=== PATIENT | male | born 1995 | race Caucasian/White ===

== ENCOUNTER 2024-04-30 14:29 | Emergency (ER) | payer MEDICARE, MEDICAID, SELFPAY ==
[2024-04-30] VITALS (7 sets, daily range): BP systolic 132–154; BP diastolic 70–91; PULSE 82–92; RESP 16–20; TEMP 36.8; O2SAT 95–97; BMI 19.9
--- NOTE | 2024-04-30 14:33 | XRR_ITS ---
PROCEDURE INFORMATION: Exam: XR Chest Exam date and time: 04/30/2024 2:37 PM Age: 28 years old Clinical indication: Dyspnea and shortness of breath TECHNIQUE: Imaging protocol: Radiologic exam of the chest. Views: 1 view. COMPARISON: CR XR chest 1V [id number] 09/29/2018 11:04 PM FINDINGS: Lungs: Unremarkable. No consolidation. Pleural spaces: Unremarkable. No pleural effusion. No pneumothorax. Heart/Mediastinum: Unremarkable. No cardiomegaly. Bones/joints: Mild scoliosis with minimal spondylosis. Otherwise, unremarkable. XR/XR chest 1V portable [id number] IMPRESSION: No acute disease.
--- NOTE | 2024-04-30 14:39 | ED_ITS ---
HPI - SOB/Dyspnea General: Chief Complaint: Asthma Stated Complaint: SOB Time Seen by Provider: 04/30/24 14:31 Source: patient and EMS Mode of arrival: EMS Limitations: no limitations History of Present Illness: HPI Narrative: 28-year-old male states he has got a his tory of asthma he states last 2 days has been having increasing wheezing with cough and congestion. He states he does not have any albuterol at home states symptoms worsen this morning so he called EMS he did receive a breathing treatment route states he feels much improved. He states his cough but nonproductive denies any pain or fever. Associated symptoms: Deny abdominal pain, chest pain, fever(s), nausea or vomiting Related Data Previous Rx's Medication Instructions Recorded albuterol sulfate 90 mcg/actuation 2 inh inhalation Q6H PRN shortness 04/30/24 aerosol inhaler of breath or wheezing #8 grams Allergies Allergy/AdvReac Type Severity Reaction Status Date / Time cat dander Allergy ALGY-Swell Verified 04/30/24 14:42 Lip/Tongue/Throat Review of Systems Const: Denies: fever(s), chills, body aches or change in appetite ENMT: Denies: throat pain or dental pain Card: Denies: chest pain Resp: Reports: non-productive cough and wheezing; Denies: dyspnea GI: Denies: abdominal pain, nausea, vomiting or diarrhea Musc: Denies: neck pain or back pain Skin/Breast: Denies: rash Neuro: Denies: headache(s) Physical Exam Const: COMMON NORMALS: no acute distress, patient oriented x3 and healthy appearing HENMT: COMMON NORMALS: normocephalic and atraumatic HEAD & SCALP: normocephalic and atraumatic Neck/C-Spine: COMMON NORMALS: full ROM and supple Chest: COMMONS NORMALS: normal inspection of the chest Resp: COMMON NORMALS: normal respiratory effort AUSCULTATION: wheezes Cardio: COMMON NORMALS: regular rate, regular rhythm and No murmurs present (Cardio) RATE: regular rate RHYTHM: regular rhythm Extremity: COMMON NORMALS: normal to inspection and full ROM Neuro: COMMON NORMALS: patient oriented x3, moves all extremities and no focal motor deficits Psych: COMMON NORMALS: mental status grossly normal, Normal thought process present and cooperative THOUGHT PROCESS: Normal thought process present Skin: COMMON NORMALS: no rashes or lesions noted and no wounds GENERAL SKIN EXAM: no rashes or lesions noted Course Vital Signs: Vital signs: Vital Signs Temperature 98.3 F 04/30/24 14:30 Pulse Rate 86 04/30/24 15:18 Respiratory Rate 18 04/30/24 15:18 Blood Pressure 154/91 04/30/24 14:30 Pulse Oximetry 96 04/30/24 15:18 Oxygen Delivery Me thod Room Air 04/30/24 15:18 MDM - SOB/Dyspnea Medical Decision Making Patient presents here with asthma exacerbation he has no signs of pneumonia is much improved after breathing treatment did give him Decadron we will prescribe him an albuterol inhaler he is stable for discharge follow-up with PCP return if worsening. Medical Records I reviewed the patient's medical records. Lab Data I reviewed the patient's lab results. Labs/Radiology: Radiology Impressions Chest X-Ray 04/30/24 14:33 IMPRESSION: No acute disease. Laboratory Results Coronavirus (PCR) Negative (Negative) 04/30/24 15:18 Influenza A (PCR) Negative (Negative) 04/30/24 15:18 Influenza Type B (PCR) Negative (Negative) 04/30/24 15:18 RSV (PCR) Negative (Negative) 04/30/24 15:18 All radiology interpretation(s) finalized by discharge Discharge Plan Discharge Patient Disposition: Home Clinical Impression: Asthma with acute exacerbation Condition: Stable Prescriptions: New albuterol sulfate 90 mcg/actuation HFA aerosol inhaler 2 inh INHALATION Q6H PRN (Reason: shortness of breath or wheezing) Qty: 8 0RF Discharge Orders: Discharge ED (Routine); Ordered 04/30/24 Ordered By: Yessenia Colon Discharge Diet: Advance as tolerated Discharge Activity: Resume usual activity Patient Instructions: Asthma Exacerbation - Adult, Asthma (ED) Coding Level of Care Code ED Extension Service Specialist In Charge for Nicki Conway
[2024-04-30] MEDS: dexamethasone 10 mg/mL INJ IM (15:11)
[2024-04-30] MEDS: albuterol 8 gm MDI 2 PUFF INHALATION (15:18)
[2024-04-30 16:31] LABS: Covid PCR NEGATIVE (Negative); Influenza A NEGATIVE (Negative); Influenza B NEGATIVE (Negative); Respiratory Syncytial Virus Ce NEGATIVE (Negative)
== END 2024-04-30 16:55 | disposition home or self-care (01) ==
PROVIDERS: Emergency Provider Emergency Medicine
DX: J45.901 Unspecified asthma with (acute) exacerbation (principal); Z11.52 Encounter for screening for COVID-19
CPT/HCPCS: 0241U; 71045; 96372; 99284; J1100; J3535

== ENCOUNTER 2024-11-26 11:02 | Outpatient (CLI) | payer MEDICARE, MEDICAID, SELFPAY ==
--- NOTE | 2024-11-26 11:15 | XR_ITS ---
WS: [id number] Exam: XR abdomen 1V* [id number] Date/Time of Exam: 11/26/2024 11:32 AM Reason For Exam: LOWER ABDOMINAL PAIN No bowel obstruction or free air. No sign of organ enlargement. Unremarkable bony elements. Moderate amount retained stool in the transverse and RIGHT colon. XR/XR abdomen 1V* [id number] IMPRESSION: 1. No acute abdominal process.
== END 2024-11-26 11:03 | disposition home or self-care (01) ==
LOC: RAD 11:10
PROVIDERS: PCP Internal Medicine; Visit Provider Internal Medicine
DX: R10.30 Lower abdominal pain, unspecified (principal); R93.89 Abnormal findings on diagnostic imaging of other specified body structures
CPT/HCPCS: 74018

== ENCOUNTER 2025-02-07 15:30 | Inpatient (IN) | payer MEDICARE, MEDICAID, SELFPAY ==
--- OUTSIDE RECORDS SUMMARY | 2024-11-18 09:00 | XMS_ITS ---
Author Organization [facility] Address [address] [place] [address] Care Team Providers Care Mangle Feeder Name Role Phone Chang Jean Unavailable REASON FOR VISIT EST CARE Encounters Encounter Location Date Provider Diagnosis [facility] [address] [place] [phone] 11/18/2024 Chang Jean Plan Of Treatment No Information Progress Notes * CHANG REIDDOB: (29 yo M)Acc No.[id number]:11/18/2024 Progress Notes Patient: CHANG MCKEON Provider: Aleida Jean MD :1995 A ge:29 Y S ex:Male Date:11/18/2024 Address:[address] [place], [place] [phone] Subjective: * Chief Complaints: * 1 . EST CARE. * Medical History: Objective: * Vitals: Assessment: Plan: * Treatment: Forms: Care Plan: * Problems: * Billing Information: * Visit Code: * Procedure Codes: * Electronic signature of Gaby Jean MD on 02/07/2025 at 03:54 PM CDT Sign off status: Pending * Provider: Aleida Jean MD Date: 11/18/2024 Generated for Babita iraheta/Fameg/eTransmitting on: 0 02/07/2025 03:54 PM CDT
[2025-02-07 15:33] VITALS: BP 131/81; PULSE 117; RESP 16; TEMP 37.4; O2SAT 98
--- OUTSIDE RECORDS SUMMARY | 2025-02-07 15:54 | XMS_ITS | Encounter Summary ---
Author Organization [facility] Address [address] [place] [address] Care Team Providers Care Collar Stitcher Name Role Phone Erin Cruz MD Primary Care Provider Reason for Visit * Reason Comments Medication Refill Encounter Details Date Type Department Care Team (Late st Contact Info) Description 09/25/2019 Refill [facility] Orthopedics Orthopedic [facility] [address] [place] [phone] Byron Montilla MD [address] [place] [address] Social History Tobacco Use Types Packs/Day Years Used Date Smoking Tobacco: Never Assessed Sex and Gender Information Value Date Recorded Sex Assigned at Not on file 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 Gender Identity Not on file Sexual Orientation Not on file documented as of this encounter Plan of Treatment Not on file documented as of this encounter Visit Diagnoses Not on filedocumented in this encounter Additional Health Concerns Infection Onset Date Last Indicated Resolved Time R/O COVID-01/25/2021 01/25/2021 01/25/2021 5:30 PM CDT COVID-19 01/25/2021 01/25/2021 02/24/2021 8:08 PM CDT documented as of this encounter Care Teams Collar Stitcher Relationship Specialty Start Date End Date Erin Cruz MD [address] [facility] [place] [phone] PCP - General Family Practice 01/25/21 documented as of this encounter
--- OUTSIDE RECORDS SUMMARY | 2025-02-07 15:54 | XMS_ITS | Clinical Summary ---
Author Organization [facility] Address [address] [place] [address] Phone Care Team Providers Care Note Keeper Name Role Phone Erin Cruz MD Primary Care Provider Allergies No known active allergies Medications benzonatate (TESSALON) 100 mg capsule Take 1 Capsule (100 mg) by mouth 3 times daily. 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 Gender Identity Not on file Sexual Orientation Not on file Last Filed Vital Signs Vital Sign Reading Time Taken Comments Blood Pressure 147/88 01/25/2021 7:04 PM CDT Pulse 86 01/25/2021 7:04 PM CDT Temperature 36.7 C (98 F) 01/25/2021 7:04 PM CDT Respiratory Rate 16 01/25/2021 7:04 PM CDT Oxygen Saturation 100% 01/25/2021 7:04 PM CDT Inhaled Oxygen Concentration - - Weight - - Height - - Body Mass Index - - Plan of Treatment Health Maintenance Due Date Last Done Comments DTAP/TDAP/TD VACCINES (1 - Tdap) 2012 HEPATITIS B VACCINES (1 of 3 - 19+ 3-dose series) 2012 INFLUENZA VACCINE (#1) 2024 HPV VACCINES Aged Out No longer eligi ble based on patient's age to complete this topic Insurance [place]ICA[place] MEDICARE PART A AND B RX ulike Medicare Part D * Guarantor: [phone] Account Type Relation to Patient Date of Phone Billing Address Personal/Family Father MEDICAID [place] Care Teams Note Keeper Relationship Specialty Start Date End Date Erin Cruz MD [address] [place] [phone] PCP - General Family Practice 01/25/21
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
--- OUTSIDE RECORDS SUMMARY | 2025-02-07 15:54 | XMS_ITS | Clinical Summary ---
Author Organization [facility] Address [address] [place] [address] Phone Care Team Providers Care Transfer Machine Operator Name Role Phone Erin Cruz MD Primary Care Provider [phone] Medications benzonatate (TESSALON) 100 mg capsule Take 1 Capsule (100 mg) by mouth 3 times daily. 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 Gender Identity Not on file Sexual Orientation Not on file Last Filed Vital Signs Vital Sign Reading Time Taken Comments Blood Pressure 147/88 01/25/2021 7:04 PM CDT Pulse 86 01/25/2021 7:04 PM CDT Temperature 36.7 C (98 F) 01/25/2021 7:04 PM CDT Respiratory Rate 16 01/25/2021 7:04 PM CDT Oxygen Saturation - - Inhaled Oxygen Concentration - - Weight - - Height - - Body Mass Index - - Plan of Treatment Health Maintenance Due Date Last Done Comments DTAP/TDAP/TD VACCINES (1 - Tdap) 2012 HEPATITIS B VACCINES (1 of 3 - 19+ 3-dose series) 2012 INFLUENZA VACCINE (#1) 2025 HPV VACCINES Aged Out No longer eligi ble based on patient's age to complete this topic Insurance * Guarantor: CHANG REID Account Type Relation to Patient Date of Phone Billing Address Personal/Family [address] [place] [address] [employer] Medicare Part D Care Teams Transfer Machine Operator Relationship Specialty Start Date End Date Erin Cruz MD [address] [place] [phone] PCP - General 01/25/21
--- OUTSIDE RECORDS SUMMARY | 2025-02-07 15:54 | XMS_ITS | Patient Health Record ---
Author Organization [facility] Address [address] [place] [address] Care Team Providers Care Sessions Clerk Name Role Phone JeanChang langford Unavailable Allergies No Known Allergies Results Component Value Reference Range Notes Abdomen [id number] Reviewed date:11/26/2024 04:33:13 PM Interpretation: Performing Lab: Notes/Report: Reason For Referral No Information Medications Medication SIG (Take, Route, Fr equency, Duration) Notes Start Date End Date Status Lumigan 0.01 % 1 drop into affected eye in the evening Ophthalmic Once a day Ac tive tiZANidine HCl 4 mg TAKE ONE TABLET BY M OUTH NEEDED ONCE A DAY AT BEDTIME for 30 Active Meloxicam 15 mg TAKE ONE TABLET BY M OUTH ONCE A DAY FOR 30 DAYS for 30 Active Social History Tobacco Use: Social History Observation Description Date Details (start date - stop date) Former Smoker NA - NA PHQ-9 Question Answer Notes Little interest or pleasure in doing things Not at all Feeling down, depressed, or hopeless Not at all Trouble falling or staying asleep, or sleeping t oo much Not at all Feeling tired or having little energy Not at all Poor appetite or overeating Not at all Feeling bad about yourself, or that you are a failure, or have let yourself or your family down Not at all Trouble concentrating on thi ngs, such as reading the newspaper or watching television Not at all Moving or speaking so slowly that other people could have noticed. Or the opposite ? being so fidgety or restless that you have been moving around a lot more than usual Not at all Thoughts that you would be b nicolas off , or of hurting yourself in some way Not at all Total Score 0 Tobacco Control (Standard) Question Answer Notes Tobacco use: Former smoker How long has it been since you last smoked? 1-5 years Section Notes: CIME Dep/tob - 11/21/24 CIME Dep/tob - 11/21/24 Problems Problem Type SNOMED Code ICD Code Onset Dates Problem Status W/U Status Risk Notes Problem 73361956 Neck pain (M54.2) Active confirmed Problem 09253718 Lower abdominal pain (R10.30) Active confirmed Vital Signs Heart Rate 75 /min 11/27/2024 Temperature 98.8 degrees Fahrenheit 11/27/2024 Blood pressure diastolic 68 mm Hg 11/27/2024 Oximetry 99 % 11/27/2024 Height-cm 187.96 cm 11/27/2024 Weight-kg 77.84 kg 11/27/2024 Height 74 in 11/27/2024 Blood pressure systolic 120 mm Hg 11/27/2024 Weight 171.6 lbs 11/27/2024 BMI 22.03 kg/m2 11/27/2024 Encounters Encounter Location Date Provider Diagnosis [facility] [address] [place] [phone] 01/28/2025 Chang [facility] [address] [place] [phone] 11/27/2024 Chang Jean Neck pain M54.2 and Depression screen Z13.31 [facility] [address] [place] [phone] 11/21/2024 Chang Jean Lower abdominal pain R10.30 ; Neck pain M54.2 and Depression screen Z13.31 Assessments Encounter Date Diagnosis (ICD Code) Assessment Notes Treatment Notes Treatment Clinical Notes Section Notes 11/21/2024 Neck pain (ICD-10 - M54.2) 11/21/2024 Lower abdominal pain (ICD-10 - R10.30) 11/27/2024 Neck pain (ICD-10 - M54.2) I have encouraged him to take the zanaflex and meloxicam. 11/27/2024 Depression screen (ICD-10 - Z13.31) 11/21/2024 Depression screen (ICD-10 - Z13.31) Plan Of Treatment No Information Insurance Providers Payer Name Payer Address Payer Phone Subscriber Number Group Number Insured Name Patient Relationship to Insured Coverage Start Date Coverage End Date [employer] with DME [address] [address] [place] [address] [id number] CHANG REID Self - patient is the insured [place] Medicare [address] [address] [place] [address] [id number] CHANG REID Self - patient is the insured [place] Medicaid [address] [place] [address] [id number] CHANG REID Self - patient is the insured Medical (General) History Medical History History ICD Code glaucoma hernia neck pain Surgical History Surgery Date(Month/Year) hernia repair
--- NOTE | 2025-02-07 16:02 | W.ED.PSYCHS ---
HPI - Psych General: Chief Complaint: Psychiatric Symptoms Stated Complaint: 96 Time Seen by Provider: 02/07/25 15:32 History of Present Illness: This patient is a 29 year old presenting with police on a [address] There are affidavits from his family regarding some violent behavior and statements about suicide. The patient denies that. He does admit he was throwing things out of his trailer because he was looking for a magnet and because he needs to get all the black mold out of the trailer. He demonstrates pressured speech and is difficult to keep on topic. Related Data Home Medications ?Medication ?Instructions ?Recorded ?Confirmed bimatoprost 0.01 % eye drops 1 drp ophthalmic (eye) BEDTIME 02/07/25 02/07/25 (Lumigan) meloxicam 15 mg tablet 15 mg PO DAILY 02/07/25 02/07/25 tizanidine 4 mg tablet 4 mg PO BEDTIME 02/07/25 02/07/25 Allergies Allergy/AdvReac Type Severity Reaction Status Date / Time cat dander Allergy ALGY-Swell Verified 04/30/24 14:42 Lip/Tongue/Throat [facility] ED PFSH: Medical History (Updated 02/07/25 @ 17:38 by Dannielle Anderson MD) Asthma Glaucoma Marijuana dependence Surgical History (Updated 05/02/24 @ 13:53 by Bharti Jeffery MD) History of right inguinal hernia repair Family History (Updated 05/02/24 @ 13:17 by Jacqueline Navarro LPN) Father Hypertension Mother Arthritis Social History (Updated 05/02/24 @ 13:26 by Jacqueline Navarro LPN) Smoking and tobacco/nicotine status: former use of tobacco/nicotine Alcohol intake: current Alcohol intake frequency: 3 or more drinks per day Alcohol type: beer and hard liquor Substance/Drug Use: current Substance/Drug use frequency: daily Adopted: No Caregiver/support person: No Lives independently: Yes Household members: none Housing: Manufactured/Mobile home Marital status: Single Number of children: 0 Highest education level completed: High School Graduate Current occupational status: disabled Current occupational exposures/hazards: No Pets and animals: Yes Sexually active: Yes Do you think of yourself as: Straight/Heterosexual Current gender identity: Male Physical Exam Const: COMMON NORMALS: no acute distress, patient oriented x3, no limitations and alert GENERAL APPEARANCE: cooperative and comfortable HENMT: HEAD & SCALP: normal to inspection FACE & SINUS: normal facial exam Eye: GENERAL EYE: appearance normal, both eyes and all related structures Neck/C-Spine: COMMON NORMALS: supple, no meningeal signs and no JVD Chest: COMMONS NORMALS: normal inspection of the chest Resp: COMMON NORMALS: normal respiratory effort, No use of accessory muscles and clear to auscultation bilaterally AUSCULTATION: clear to auscultation bilaterally Cardio: COMMON NORMALS: no JVD, regular rate, regular rhythm and No murmurs present (Cardio) RATE: regular rate RHYTHM: regular rhythm GI: COMMON NORMALS: Normal to inspection, nondistended, normoactive bowel sounds present, Soft to palpation and non-tender INSPECTION: Yes normal to inspection AUSCULTATION: Yes normoactive bowel sounds PALPATION: Yes Soft to palpation Back/Pelvis: COMMON NORMALS: thoracic and lumbar spine normal to inspection Extremity: COMMON NORMALS: normal to inspection Neuro: COMMON NORMALS: patient oriented x3, moves all extremities, no focal motor deficits and no sensory deficits noted SENSORIUM/ORIENTATION: Yes alert MENINGEAL SIGNS: Yes no meningeal signs Psych: ACTIVITY/MOTOR BEHAVIOR: Yes fidgeting and Yes restless SPEECH: Yes excessive, Yes rapid and Yes Pressured speech present THOUGHT CONTENT: Yes Obsession(s) present INSIGHT: Poor insight present (Psych) Skin: COMMON NORMALS: no rashes or lesions noted and turgor normal GENERAL SKIN EXAM: no rashes or lesions noted and turgor normal Course Vital Signs: Vital signs: Vital Signs Temperature 99.4 F 02/07/25 15:33 Pulse Rate 117 H 02/07/25 15:33 Respiratory Rate 18 02/07/25 16:38 Blood Pressure 131/81 02/07/25 15:33 Pulse Oximetry 98 02/07/25 15:33 Oxygen Delivery Me thod Room Air 02/07/25 15:33 MDM - Psych Medical Decision Making Patient is agitated and pressured - manic. He denies any history of prior psychiatric disorders or treatment and denies any drug use other than cannabis. 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 He is cooperative but becomes easily irritated. Lab Data 02/07/25 15:50 02/07/25 15:50 Laboratory Results WBC 8.83 10^3/uL (3.29-11.43) 02/07/25 15:50 RBC 5.73 10^6/uL (3.85-5.65) H 02/07/25 15:50 Hgb 15.80 g/dL (11.27-16.99) 02/07/25 15:50 Hct 47.1 % (37-53) 02/07/25 15:50 MCV 82.2 fl (82-101) 02/07/25 15:50 MCH 27.6 pg (27-33) 02/07/25 15:50 MCHC 33.5 g/dL (30-55) 02/07/25 15:50 RDW 12.5 % (12.1-15.1) 02/07/25 15:50 Plt Count 230 10^3/cmm (157-399) 02/07/25 15:50 MPV 11.1 fL (7.4-10.4) H 02/07/25 15:50 Neut % (Auto) 67.2 % 02/07/25 15:50 Lymph % (Auto) 22.9 % 02/07/25 15:50 Assumption % (Auto) 8.4 % 02/07/25 15:50 Eos % (Auto) 0.8 % 02/07/25 15:50 Baso % (Auto) 0.6 % 02/07/25 15:50 Neut # (Auto) 5.94 10^3/uL (1.8-7.7) 02/07/25 15:50 Lymph # (Auto) 2.0 10^3/uL (0.8-4.8) 02/07/25 15:50 Assumption # (Auto) 0.7 10^3/uL (0.2-0.9) 02/07/25 15:50 Eos # (Auto) 0.1 10^3/uL (0.0-0.8) 02/07/25 15:50 Baso # (Auto) 0.1 10^3/uL (0.0-0.1) 02/07/25 15:50 Nucleated RBC % (auto) 0 % 02/07/25 15:50 Nucleated RBCs # 0.0 /100WBC 02/07/25 15:50 Sodium 143 mmol/L (136-145) 02/07/25 15:50 Potassium 3.5 mmol/L (3.5-5.1) 02/07/25 15:50 Chloride 106 mmol/L (98-107) 02/07/25 15:50 Carbon Dioxide 22 mmol/L (22-29) 02/07/25 15:50 Anion Gap 18.5 (5-19) 02/07/25 15:50 BUN 12 mg/dL (6-20) 02/07/25 15:50 Creatinine 0.6 mg/dL (0.7-1.2) L 02/07/25 15:50 GFR Calculation 157.1 mL/min (90-130) H 02/07/25 15:50 Glucose 125 mg/dL (65-115) H 02/07/25 15:50 Calculated Osmolality 297 mOsm/kg (285-295) H 02/07/25 15:50 Calcium 9.6 mg/dL (8.5-10.5) 02/07/25 15:50 Total Bilirubin 2.2 mg/dL (0.15-1.2) H 02/07/25 15:50 AST 17 U/L (0-40) 02/07/25 15:50 ALT 17 U/L (0-41) 02/07/25 15:50 Alkaline Phosphatase 62 U/L (40-130) 02/07/25 15:50 Total Protein 7.9 g/dL (6.6-8.7) 02/07/25 15:50 Albumin 5.1 g/dL (3.5-5.2) 02/07/25 15:50 Globulin 2.8 g/dL (1.3-4.6) 02/07/25 15:50 Salicylates < 0.3 mg/dL (3-10) L 02/07/25 15:50 Urine Opiates Screen Negative ng/mL (Negative) 02/07/25 16:50 Acetaminophen < 5.0 ug/mL (10-30) L 02/07/25 15:50 Ur Barbiturates Screen Negative ng/mL (Negative) 02/07/25 16:50 Ur Phencyclidine Scrn Negative ng/mL (Negative) 02/07/25 16:50 Ur Amphetamines Screen Negative ng/mL (Negative) 02/07/25 16:50 U Benzodiazepines Scrn Negative ng/mL (Negative) 02/07/25 16:50 Urine Cocaine Screen Negative ng/mL (Negative) 02/07/25 16:50 U Marijuana (THC) Screen Positive ng/mL (Negative) H 02/07/25 16:50 Ethyl Alcohol < 10 mg/dL (0-10) 02/07/25 15:50 No radiology studies performed this visit Discharge Plan Discharge Patient Disposition: Admitted As Inpatient Admit Provider: Chris Nascimento Clinical Impression: Suicidal ideations, Krystle Condition: Stable Coding Level of Care Code ED Jacquard Card Cutter for Nicki Conway
[2025-02-07 16:05] LABS: Hematocrit 47.1 % (37-53); Hemoglobin 15.80 g/dL (11.27-16.99); Mean Corpuscular HGB Conc 33.5 g/dL (30-55); Mean Corpuscular Hemoglobin 27.6 pg (27-33); Mean Corpuscular Volume 82.2 fl (82-101); Nucleated Red Blood Cells % 0 %; Platelet Count 230 10^3/cmm (157-399); Red Blood Count 5.73 10^6/uL (3.85-5.65); White Blood Count 8.83 10^3/uL (3.29-11.43)
[2025-02-07 16:28] LABS: Alanine Aminotransferase 17 U/L (0-41); Albumin Level 5.1 g/dL (3.5-5.2); Alkaline Phosphatase 62 U/L (40-130); Anion Gap 18.5 (5-19); Aspartate Amino Transferase 17 U/L (0-40); Blood Urea Nitrogen 12 mg/dL (6-20); Calcium 9.6 mg/dL (8.5-10.5); Carbon Dioxide 22 mmol/L (22-29); Chloride 106 mmol/L (98-107); Creatinine Clr Calc Pharmacy 195.8569; Globulin 2.8 g/dL (1.3-4.6); Glucose 125 mg/dL (65-115); Osmolality Calculated 297 mOsm/kg (285-295); Potassium 3.5 mmol/L (3.5-5.1); Sodium 143 mmol/L (136-145); Total Protein 7.9 g/dL (6.6-8.7)
[2025-02-07 16:31] LABS: Acetaminophen < 5.0 ug/mL (10-30); Alcohol Level < 10 mg/dL (0-10); Salicylate < 0.3 mg/dL (3-10)
[2025-02-07 16:38] VITALS: RESP 18
--- NOTE | 2025-02-07 16:52 | PC.NURSE ---
provided pt with x1 spoon, pudding, jello, sandwich, water.
[2025-02-07 17:11] LABS: PCP Screen Urine Negative (Negative)
--- NOTE | 2025-02-07 17:53 | PC.NURSE ---
attempted report to [facility] x1; states will call back
--- NOTE | 2025-02-07 18:38 | PC.NURSE ---
report called to Griselda in [facility], no further questions.
[2025-02-07 19:17] VITALS: BP 140/89; PULSE 96; RESP 18; O2SAT 100
[2025-02-07 19:49] VITALS: BP 164/104; PULSE 87; RESP 21; O2SAT 98
[2025-02-07 20:32] VITALS: BP 164/104; PULSE 87; RESP 21; O2SAT 98
[2025-02-08 06:00] VITALS: BP 147/81; PULSE 82; RESP 18; TEMP 36.8; O2SAT 98
[2025-02-08 14:00] VITALS: BP 124/79; PULSE 59; RESP 18; TEMP 36.7; O2SAT 98
--- NOTE | 2025-02-08 17:24 | P.NPUHP_ITS ---
Providers/Chief Complaint 2 Admitting Physician: Chris Nascimento MD Primary Care Provider: Ac Jean MD Chief Complaint: 96 HPI NPU History of Present Illness Chang Colvin is a 29 year old male with a past history of bipolar disorder, oppositional defiant disorder and ADHD who presented to the emergency department accompanied by police on a 96-hour court order. The patient was admitted to the neuropsychiatric unit for further evaluation and treatment. The affidavits reveal that the patient had been engaged in unusual behavior on the trailer on his parents property yesterday. He had apparently thrown garbage out of his trailer and onto the ground as he had reported that he was protesting his father continuously yelling at him. He reports that he had hit himself in the head yesterday in frustration as he believes his father for having been here in the hospital. He had been a poor historian and was unable to provide any clear history other than reporting that he has been upset at having to live back with his parents on their property. He states that his father is to blame for him being here in the hospital. He reports that his father is the one that is angry and states that his mother walks on eggshells and that he is the victim. 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 He reports that he has been losing weight because he cannot afford food. The patient had stated that he was trying to remove black mold in his trailer and had admitted to having put a hole in his wall but stated that the hole in the wall of his trailer was because he was trying to repair it but wanted to remove the black mold first. He was extremely difficult to redirect on the interview and effectively did not answer any questions regarding his sleep pattern other than stating that he felt fine and did not need to be on any medications but simply needed to go home. He had denied any drug or alcohol use. The patient was positive for marijuana on admission. Inpatient psychiatric history: The patient had reported that he had been hospitalized as a kid but could not recall when. Outpatient psychiatric history: The patient had reported having been treated through [facility] as an adolescent and a child with history of oppositional defiant disorder, ADHD, and bipolar disorder. Substance abuse history: Patient minimized use although there was a prior history of presence of alcohol on another emergency department visit as well as the patient being positive for marijuana on this admission. Medical history: Optic nerve atrophy, glaucoma, asthma Surgical history: Right inguinal hernia repair Medications: Lumigan, meloxicam, tizanidine Allergies: cat dander Legal history: none reported Family psychiatric history: unknown Social History: The patient was born in [place] and has a brother that lives in [place]. He reports that he had required special's educational services due to his visual impairment but graduated from high school. He reports he has been on disability throughout his life. He did not endorse any history of abuse. He is currently living on a trailer on his parents property. He had previously lived in [place] independently for 5 years but stated that his ability to manage his care with his finances led to him having to move back home with his parents approximately 1 year ago. He reports having a contentious relationship with his parents. He is not . Meds NPU Home Medications ?Medication ?Instructions ?Recorded ?Confirmed ?Last Taken ?Type bimatoprost 0.01 % eye drops 1 drp ophthalmic (eye) BE DTIME 02/07/25 02/07/25 02/07/25 History (Lumigan) meloxicam 15 mg tablet 15 mg PO DAILY 02/07/25 0711/2902/06/25 19:00 History tizanidine 4 mg tablet 4 mg PO BEDTIME 02/07/2511/2902/06/25 19:00 History Allergies Allergy/AdvReac Type Severity Reaction Status Date / Time cat dander Allergy ALGY-Swell Verified 04/30/24 14:42 Lip/Tongue/Throat PFSH NPU 2 PFSH: Medical History (Updated 02/08/25 @ 18:03 by Chris Nascimento MD) Asthma Glaucoma Marijuana dependence Surgical History (Updated 05/02/24 @ 13:53 by Bharti Jeffery MD) History of right inguinal hernia repair Family History (Updated 05/02/24 @ 13:17 by Jacqueline Navarro LPN) Father Hypertension Mother Arthritis Social History (Updated 05/02/24 @ 13:26 by Jacqueline Navarro LPN) Smoking and tobacco/nicotine status: former use of tobacco/nicotine Alcohol intake: current Alcohol intake frequency: 3 or more drinks per day Alcohol type: beer and hard liquor Substance/Drug Use: current Substance/Drug use frequency: daily Adopted: No Caregiver/support person: No Lives independently: Yes Household members: none Housing: Manufactured/Mobile home Marital status: Single Number of children: 0 Highest education level completed: High School Graduate Current occupational status: disabled Current occupational exposures/hazards: No Pets and animals: Yes Sexually active: Yes Do you think of yourself as: Straight/Heterosexual Current gender identity: Male Mental Status Exam 2 MSE Comments: The patient was intense and somewhat guarded on interview. He was alert and oriented to person, place, and time. There was evidence of psychomotor agitation. His hygiene was fair. There was no evidence of any abnormal involuntary motor movements, tics, or tremors. His speech appeared rapid and difficult to interrupt with evidence of pressured speech and increasing volume noted. His thought process was tangential with difficulties with staying on task. He continued to perseverate throughout his conversation about his father and appeared overly inclusive in regards to providing information that appeared unrelated to the questions asked. There was some evidence of flight of ideas. He did not endorse homicidal or suicidal ideation. There was no clear evidence of delusional thinking. His attention span was impaired. His insight is poor. His judgment is poor. His impulse control appeared limited. Vitals/I&O/Wt Last Vital Signs Temp 98.1 F 02/08/25 14:00 Pulse 59 L 02/08/25 14:00 Resp 18 02/08/25 14:00 BP 124/79 02/08/25 14:00 Pulse Ox 98 02/08/25 14:00 O2 Del Method Room Air 02/08/25 06:00 Weight last 48 hrs Weight 70.76 kg Data NPU 02/07/25 15:50 02/07/25 15:50 A&P Assessment and plan (1) Mariann: (2) Bipolar I disorder: (3) Marijuana dependence: Plan 29-year-old male who presents with evidence of manic symptoms with no history of recent treatment with the patient having no insight currently on a hold for disruptive behavior and bizarre behavior reported at home. #1.? Engage patient in individual milieu and group therapy. #2?? Recommend sober living treatment at the highest level of care to which the patient is willing to commit. THC may be inducing mariann? #3??? Patient refusing any medications. Will monitor patient in context of 96 hour hold. #4?? TO-15 minute checks? #5?? Will attempt to gather collateral information PDMP PDMP Reviewed: Not Reviewed Involuntary Hold Information 2 Hold Status: Legal Status: 96 Hour Hold Date/Time Hold Expires: 02/14/25 @0001 Attestations NPU 2 Medical Necessity Statement*: Inpatient hospitalization is medically necessary and deemed to ?be ?the clinically appropriate intervention ?at this time.? We will monitor/initiate medications and make changes as indicated.? The patient will be hospitalized for at least two midnights. The patient?s likely length of stay 7-10 days. Coding Level of Care Code Acute Code for Chg Fwd Diagnoses Mariann F30.9 Bipolar I disorder F31.9 Marijuana dependence F12.20
[2025-02-08 19:20] VITALS: BP 124/74; PULSE 93; RESP 18; TEMP 36.9; O2SAT 96
--- NOTE | 2025-02-08 20:53 | PC.NURSE ---
Patient presented to the nurses station with request that i inform the physician that he would like to take the medications that the wants to prescribe to him. He is rating his anxiety 6/10. He is verbalizing that he has a lot on his mind with his dog needing to go to the vet and other issues related to his father. Hydroxizine 50 mg po given for this.
[2025-02-09 06:00] VITALS: BP 119/75; PULSE 69; RESP 18; TEMP 36.6; O2SAT 99
[2025-02-09 14:00] VITALS: BP 130/81; PULSE 70; RESP 18; TEMP 36.7; O2SAT 100
--- NOTE | 2025-02-09 16:16 | P.NPUPN_ITS ---
Subjective NPU 2 Subjective: The patient is a 29-year-old male admitted with disorganized behavior and manic symptoms with a history of bipolar disorder. Patient had been much calmer and cooperative on the milieu. He had reported sleeping better. He denied any racing thoughts today. He had reported that he was hopeful about finding a place to live independently as he had reported significant stressors in his family's home. He continued to state that his father had caused undue stress for him and had been excessively accusatory of him while tending to cause more instability in the patient. Mental Status Exam 2 MSE Comments: The patient was calm and cooperative on interview. He was alert and oriented to person, place, and time. There was no evidence of psychomotor agitation or psychomotor retardation today. His hygiene was fair. There was no evidence of any abnormal involuntary motor movements, tics, or tremors. His speech was normal in rate today and volume with normal prosody.. His thought process was linear and logical today. Thought content: He denied any homicidal or suicidal ideation. There was no evidence of delusional thinking. He did not appear to be responding to internal stimuli. His mood was described as good. His affect was euthymic today. His insight was poor. His judgment was improving. His impulse control appeared adequate. Vitals/I&O/Wt Last Vital Signs Temp 98.0 F 02/09/25 14:00 Pulse 70 02/09/25 14:00 Resp 18 02/09/25 14:00 BP 130/81 02/09/25 14:00 Pulse Ox 100 02/09/25 14:00 O2 Del Method Room Air 02/09/25 06:00 Weight last 48 hrs Weight 70.76 kg Data NPU 02/07/25 15:50 02/07/25 15:50 A&P Assessment and plan (1) Krystle: (2) Bipolar I disorder: (3) Marijuana dependence: Plan 29-year-old male who presents with evidence of manic symptoms with no history of recent treatment with the patient having no insight currently on a hold for disruptive behavior and bizarre behavior reported at home. #1.? Engage patient in individual milieu and group therapy. #2?? Patient appears much improved with the initiation of zyprexa 5mg at night. Curious as to whether THC was culprit in inducing krystle with very rapid improvement noted here. #3??? Patient refusing any medications. Will monitor patient in context of 96 hour hold. #4?? TO-15 minute checks? #5?? Will attempt to gather collateral information PDMP PDMP Reviewed: Not Reviewed Involuntary Hold Information 2 Hold Status: Legal Status: 96 Hour Hold Date/Time Hold Expires: 02/14/25 @0001 Attestations NPU 2 Medical Necessity Statement*: Inpatient hospitalization is medically necessary and deemed to ?be ?the clinically appropriate intervention ?at this time.? We will monitor/initiate medications and make changes as indicated. The patient?s likely length of stay 2-3 days. Coding Level of Care Code Acute Code for Chg Fwd Diagnoses Krystle F30.9 Bipolar I disorder F31.9 Marijuana dependence F12.20
[2025-02-09 19:55] VITALS: BP 127/75; PULSE 86; RESP 18; TEMP 36.4; O2SAT 96
[2025-02-09 20:50] VITALS: PULSE 57; RESP 18; O2SAT 98
[2025-02-10 06:00] VITALS: BP 134/80; PULSE 70; RESP 16; TEMP 36.4; O2SAT 99
[2025-02-10 09:25] VITALS: PULSE 73; RESP 18; O2SAT 97
[2025-02-10 14:00] VITALS: BP 138/73; PULSE 78; RESP 18; TEMP 36.9; O2SAT 100
--- NOTE | 2025-02-10 17:50 | P.NPUPN_ITS ---
Subjective NPU 2 Subjective: The patient is a 29-year-old male admitted with disorganized behavior and manic symptoms with a history of bipolar disorder. The patient had been sleeping well. He had reported that he was feeling better. He continued to perseverate about his problems at home with his father. He remained agreeable to consideration of being placed in an independent living facility. He had been redirectable on the milieu. There was no acts of aggression. He denied any racing thoughts at this time. He had reported having adequate sleep. Mental Status Exam 2 MSE Comments: The patient was calm and cooperative on interview. He was alert and oriented to person, place, and time. There was mild psychomotor activation. His hygiene was fair. There was no evidence of any abnormal involuntary motor movements, tics, or tremors. His speech was slightly increase in pressure today and normal in volume with normal prosody. His thought process was linear but some perseveration regarding his father being the source of his problems. Thought content: He denied any homicidal or suicidal ideation. There was no evidence of delusional thinking. He did not appear to be responding to internal stimuli. His mood was described as good. His affect was more irritable today. His insight was poor. His judgment was improving. His impulse control appeared guarded still. Vitals/I&O/Wt Last Vital Signs Temp 98.5 F 02/10/25 14:00 Pulse 78 02/10/25 14:00 Resp 18 02/10/25 14:00 BP 138/73 02/10/25 14:00 Pulse Ox 100 02/10/25 14:00 O2 Del Method Room Air 02/10/25 09:25 Weight last 48 hrs Weight 70.76 kg Data NPU 02/07/25 15:50 02/07/25 15:50 A&P Assessment and plan (1) Krystle: (2) Bipolar I disorder: (3) Marijuana dependence: Plan 29-year-old male who presents with evidence of manic symptoms with no history of recent treatment with the patient having no insight currently on a hold for disruptive behavior and bizarre behavior reported at home. #1.? Engage patient in individual milieu and group therapy. #2?? Patient appears much improved with the initiation of zyprexa 5mg at night. Increase zyprexa to 7.5mg at night. #3??? Patient refusing any medications. Will monitor patient in context of 96 hour hold. #4?? TO-15 minute checks? #5?? Will attempt to gather collateral information PDMP PDMP Reviewed: Not Reviewed Involuntary Hold Information 2 Hold Status: Legal Status: 96 Hour Hold Date/Time Hold Expires: 02/14/2025 0001 Attestations NPU 2 Medical Necessity Statement*: Inpatient hospitalization is medically necessary and deemed to ?be ?the clinically appropriate intervention ?at this time.? We will monitor/initiate medications and make changes as indicated. The patient?s likely length of stay 2-3 days. Coding Level of Care Code Acute Code for g Fwd Diagnoses Krystle F30.9 Bipolar I disorder F31.9 Marijuana dependence F12.20
[2025-02-10 20:25] VITALS: BP 142/89; PULSE 77; RESP 16; TEMP 36.9; O2SAT 98
[2025-02-11 06:00] VITALS: BP 146/90; PULSE 78; RESP 18; TEMP 36.3; O2SAT 95
--- NOTE | 2025-02-11 12:05 | DCPLANNER ---
Imm was given and right explained to pt and copy placed in pts file.
--- NOTE | 2025-02-11 13:10 | P.NPUDS_ITS ---
Diagnoses at Discharge Discharge Diagnosis 1. Krystle: 2. Bipolar I disorder: 3. Marijuana dependence: Reason for Visit Reason for Visit: 96 Brief History: History of Present Illness Chang Colvin is a 29 year old male with a past history of bipolar disorder, oppositional defiant disorder and ADHD who presented to the emergency department accompanied by police on a 96-hour court order. The patient was admitted to the neuropsychiatric unit for further evaluation and treatment. The affidavits reveal that the patient had been engaged in unusual behavior on the trailer on his parents property yesterday. He had apparently thrown garbage out of his trailer and onto the ground as he had reported that he was protesting his father continuously yelling at him. He reports that he had hit himself in the head yesterday in frustration as he believes his father for having been here in the hospital. He had been a poor historian and was unable to provide any clear history other than reporting that he has been upset at having to live back with his parents on their property. He states that his father is to blame for him being here in the hospital. He reports that his father is the one that is angry and states that his mother walks on eggshells and that he is the victim. 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 He reports that he has been losing weight because he cannot afford food. The patient had stated that he was trying to remove black mold in his trailer and had admitted to having put a hole in his wall but stated that the hole in the wall of his trailer was because he was trying to repair it but wanted to remove the black mold first. He was extremely difficult to redirect on the interview and effectively did not answer any questions regarding his sleep pattern other than stating that he felt fine and did not need to be on any medications but simply needed to go home. He had denied any drug or alcohol use. The patient was positive for marijuana on admission. Inpatient psychiatric history: The patient had reported that he had been hospitalized as a kid but could not recall when. Outpatient psychiatric history: The patient had reported having been treated through [facility] as an adolescent and a child with history of oppositional defiant disorder, ADHD, and bipolar disorder. Substance abuse history: Patient minimized use although there was a prior history of presence of alcohol on another emergency department visit as well as the patient being positive for marijuana on this admission. Medical history: Optic nerve atrophy, glaucoma, asthma Surgical history: Right inguinal hernia repair Medications: Lumigan, meloxicam, tizanidine Allergies: cat dander Legal history: none reported Family psychiatric history: unknown Social History: The patient was born in [place] and has a brother that lives in [place]. He reports that he had required special's educational services due to his visual impairment but graduated from high school. He reports he has been on disability throughout his life. He did not endorse any history of abuse. He is currently living on a trailer on his parents property. He had previously lived in [place] independently for 5 years but stated that his ability to manage his care with his finances led to him having to move back home with his parents approximately 1 year ago. He reports having a contentious relationship with his parents. He is not . Hospital Course Hospital Course The patient appeared quite manic initially upon arrival here in the hospital. He showed evidence of dramatic improvement with restarting of Zyprexa initially at 5 mg at night and titrated up to a dose of 7-1/2 mg at night prior to discharge. He had reported significant friction between his father and the patient but the patient had appeared agreeable to a long-term plan to live independently but in the short term returning back to his trailer on his father's property. During the hospitalization, the patient had routine laboratory studies which were within normal limits except for a few outliers.? Additionally, there was a general medical evaluation which was also within normal limits and revealed no new acute processes.? At the time of discharge, lethality was denied and psychosis was resolving.? Mood and anxiety were well managed.? The patient endorsed a plan to avoid all drugs of abuse and follow up with the aftercare recommendations of the treatment team.? The patient was evaluated and deemed to be absent credible lethality and had achieved the maximum benefit from an inpatient hospitalization, and so was discharged. ? Involuntary Hold Information Hold Status: Legal Status: 96 Hour Hold Date/Time Hold Expires: 02/14/2025 0001 Mental Status Exam MSE Comments: The patient was calm and cooperative on interview. He was alert and oriented to person, place, and time. There was no psychomotor agitation or psychomotor retardation. His hygiene was fair. There was no evidence of any abnormal involuntary motor movements, tics, or tremors. His speech was normal in rate and normal in volume with normal prosody. His thought process was linear, logical and goal directed. Thought content: He denied any homicidal or suicidal ideation. There was no evidence of delusional thinking. He did not appear to be responding to internal stimuli. His mood was described as good. His affect was euthymic on discharge. His insight was poor. His judgment was improving. His impulse control appeared improved. Discharge Data Studies Completed and Pending: Laboratory Results WBC 8.83 10^3/uL (3.2 9-11.43) 02/07/25 15:50 RBC 5.73 10^6/uL (3.8 5-5.65) H 02/07/25 15:50 Hgb 15.80 g/dL (11.27 -16.99) 02/07/25 15:50 Hct 47.1 % (37-53) 02/07/25 15:50 MCV 82.2 fl (82-101) 02/07/25 15:50 MCH 27.6 pg (27-33) 02/07/25 15:50 MCHC 33.5 g/dL (30-55) 02/07/25 15:50 RDW 12.5 % (12.1-15.1 ) 02/07/25 15:50 Plt Count 230 10^3/cmm (157 -399) 02/07/25 15:50 MPV 11.1 fL (7.4-10.4 ) H 02/07/25 15:50 Neut % (Auto) 67.2 % 02/07/25 15:50 Lymph % (Auto) 22.9 % 02/07/25 15:50 Bledsoe % (Auto) 8.4 % 02/07/25 15:50 Eos % (Auto) 0.8 % 02/07/25 15:50 Baso % (Auto) 0.6 % 02/07/25 15:50 Neut # (Auto) 5.94 10^3/uL (1.8 -7.7) 02/07/25 15:50 Lymph # (Auto) 2.0 10^3/uL (0.8- 4.8) 02/07/25 15:50 Bledsoe # (Auto) 0.7 10^3/uL (0.2- 0.9) 02/07/25 15:50 Eos # (Auto) 0.1 10^3/uL (0.0- 0.8) 02/07/25 15:50 Baso # (Auto) 0.1 10^3/uL (0.0- 0.1) 02/07/25 15:50 Nucleated RBC % (a uto) 0 % 02/07/25 15:50 Nucleated RBCs # 0.0 /100WBC 02/07/25 15:50 Sodium 143 mmol/L (136-1 45) 02/07/25 15:50 Potassium 3.5 mmol/L (3.5-5 .1) 02/07/25 15:50 Chloride 106 mmol/L (98-10 7) 02/07/25 15:50 Carbon Dioxide 22 mmol/L (22-29) 02/07/25 15:50 Anion Gap 18.5 (5-19) 02/07/25 15:50 BUN 12 mg/dL (6-20) 02/07/25 15:50 Creatinine 0.6 mg/dL (0.7-1. 2) L 02/07/25 15:50 GFR Calculation 157.1 mL/min (90- 130) H 02/07/25 15:50 Glucose 125 mg/dL (65-115 ) H 02/07/25 15:50 Calculated Osmolal ity 297 mOsm/kg (285- 295) H 02/07/25 15:50 Calcium 9.6 mg/dL (8.5-10 .5) 02/07/25 15:50 Total Bilirubin 2.2 mg/dL (0.15-1 .2) H 02/07/25 15:50 AST 17 U/L (0-40) 02/07/25 15:50 ALT 17 U/L (0-41) 02/07/25 15:50 Alkaline Phosphata se 62 U/L (40-130) 02/07/25 15:50 Total Protein 7.9 g/dL (6.6-8.7 ) 02/07/25 15:50 Albumin 5.1 g/dL (3.5-5.2 ) 02/07/25 15:50 Globulin 2.8 g/dL (1.3-4.6 ) 02/07/25 15:50 Salicylates < 0.3 mg/dL (3-10 ) L 02/07/25 15:50 Urine Opiates Scre en Negative ng/mL (N egative) 02/07/25 16:50 Acetaminophen < 5.0 ug/mL (10-3 0) L 02/07/25 15:50 Ur Barbiturates Sc reen Negative ng/mL (N egative) 02/07/25 16:50 Ur Phencyclidine S crn Negative ng/mL (N egative) 02/07/25 16:50 Ur Amphetamines Sc reen Negative ng/mL (N egative) 02/07/25 16:50 U Benzodiazepines Scrn Negative ng/mL (N egative) 02/07/25 16:50 Urine Cocaine Scre en Negative ng/mL (N egative) 02/07/25 16:50 U Marijuana (THC) Screen Positive ng/mL (N egative) H 02/07/25 16:50 Ethyl Alcohol < 10 mg/dL (0-10) 02/07/25 15:50 Vitals: Last Vital Signs Temp 97.4 F L 02/11/25 06:00 Pulse 78 02/11/25 06:00 Resp 18 02/11/25 06:00 BP 146/90 02/11/25 06:00 Pulse Ox 95 02/11/25 06:00 O2 Del Method Room Air 02/11/25 06:00 Discharge Plan Discharge Patient Disposition: Home Condition: Stable Prescriptions: New olanzapine 5 mg Tablet 7.5 mg PO BEDTIME 30 Days Qty: 45 1RF Continued tizanidine 4 mg tablet 4 mg PO BEDTIME meloxicam 15 mg tablet 15 mg PO DAILY Lumigan 0.01 % drops 1 drp ophthalmic (eye) BEDTIME Discharge Order = DC NOW: Discharge Order (Routine); Ordered 02/11/25 Ordered By: Chris Nascimento Referrals: [facility] [Outside] Ac Jean MD [Primary Care Provider, Internal Medicine] Discharge Diet: Usual diet Discharge Activity: Resume usual activity Patient Instructions: Opioid Safety, Patient Portal & Kiara Instructions Discharge Attestations NPU Time Spent in Discharge Care*: less than 30 min Specific Discharge Activities: Specific discharge activities: educating patient, discussing with telephonic case manager/social workers/dc planners and documenting/other paperwork Coding Level of Care Code Acute Code for Chg Fwd Diagnoses Krystle F30.9 Bipolar I disorder F31.9 Marijuana dependence F12.20
[2025-02-11 14:00] VITALS: RESP 16
[2025-02-11 14:12] VITALS: BP 146/90; PULSE 78; RESP 18; TEMP 36.3; O2SAT 95
== END 2025-02-11 15:36 | disposition home or self-care (01) | DRG 885 ==
LOC: ER 16:22 → NP 17:36
PROVIDERS: Admitting Provider Psychiatry & Neurology Psychiatry; Emergency Provider Emergency Medicine; PCP Internal Medicine; Visit Provider Psychiatry & Neurology Psychiatry
DX: F31.9 Bipolar disorder, unspecified (principal); F12.20 Cannabis dependence, uncomplicated; F90.9 Attention-deficit hyperactivity disorder, unspecified type; F91.3 Oppositional defiant disorder; H47.20 Unspecified optic atrophy; H54.7 Unspecified visual loss
CPT/HCPCS: 36415; 80053; 80306; 80307; 85025; 94640; 97150; 97165; 99285; J7613; J9999

== ENCOUNTER → 2025-03-05 12:52 | Outpatient (BNVA) | payer MEDICARE, SELFPAY | PROVIDERS: PCP Internal Medicine; Visit Provider Nurse Practitioner | DX: Z79.899 Other long term (current) drug therapy (principal); T43.501A Poisoning by unspecified antipsychotics and neuroleptics, accidental (unintentional), initial encounter | CPT/HCPCS: 80061; 83036 ==

== ENCOUNTER 2025-07-10 18:09 | Inpatient (IN) | payer MEDICARE, MEDICAID, SELFPAY ==
[2025-07-10 18:12] VITALS: BP 155/78; PULSE 88; RESP 18; TEMP 36.8; O2SAT 98; BMI 19.6
--- NOTE | 2025-07-10 18:43 | ED.C_ITS ---
HPI - Psych 2 General: Chief Complaint: Psychiatric Symptoms Stated Complaint: 96 Time Seen by Provider: 07/10/25 18:20 History of Present Illness: 29-year-old male history of ODD, ADHD, b ipolar 1 with previous psychiatric hospitalization in February of this year, presenting to the emergency department with 96-hour hold in place due to abnormal behavior and threatening comments made per affidavit which was signed by the patient's father as well as 2 tenants that reside on their property the patient has been acting out angrily, pacing the property at night and looking into windows, he has reportedly made comments to shoot people and eat them as well as to kill black people . He also apparently consumes an exorbitant amount of cannabis $600 per month, he was brought in by [employer]. Patient refutes most of the allegations made during my conversation with him, he is currently cooperative. He reports that there is a an open court case scheduled for the related to disputes with the same people Related Data Home Medications ?Medication ?Instructions ?Recorded ?Confirmed bimatoprost 0.01 % eye drops 1 drp ophthalmic (eye) BE DTIME 02/07/25 07/09/25 (Lumigan) Allergies Allergy/AdvReac Type Severity Reaction Status Date / Time cat dander Allergy ALGY-Swell Verified 07/09/25 15:20 Lip/Tongue/Throat PFSH ED 2 PFSH: Medical History Bipolar I disorder Follows with psychiatry ALICIA (generalized anxiety disorder) Follows with psychiatry Antipsychotic overdose On combination antipsychotic drug therapy Psychiatric care Asthma Glaucoma Marijuana dependence Surgical History History of right inguinal hernia repair Family History Father Hypertension Mother Arthritis Social History Smoking and tobacco/nicotine status: current every day tobacco/nicotine user (cannabis) Alcohol intake: current Alcohol intake frequency: 3 or more drinks per day Alcohol type: beer and hard liquor Substance/Drug Use: current Substance/Drug use frequency: daily Adopted: No Caregiver/support person: No Lives independently: Yes Household members: none Housing: Manufactured/Mobile home Marital status: Single Number of children: 0 Highest education level completed: High School Graduate Current occupational status: disabled Current occupational exposures/hazards: No Pets and animals: Yes Sexually active: Yes Do you think of yourself as: Straight/Heterosexual Current gender identity: Male Physical Exam 2 Narrative: EXAM NARRATIVE: Gen: A&Ox4, no acute distress, nontoxic appearing HEENT: Normocephalic, atraumatic, no scleral icterus, external ears normal, moist mucous membranes Neck: Supple, full range of motion, no observable masses Lungs: No Respiratory distress, Lungs clear to auscultation bilaterally no rales, rhonchi, wheezing CV: Regular rate and rhythm, no murmur, no pitting edema to lower extremities bilaterally Abdomen: Soft, nondistended, nontender to palpation MSK: No joint swelling, FROM all 4 extremities Skin: No rashes, petechiae, lesions. Normal color per patient. Neuro: Alert and oriented, no slurred speech, sensation and strength grossly intact all 4 extremities Psych: Patient appears paranoid, otherwise he does not appear acutely or overtly psychotic, does not appear to be responding to internal stimuli, thought process is coherent Course 2 Consultations: Consultation #1: Discussed case with Dr. Harvey of psychiatry who accepts patient to psychiatric unit for admission and evaluation Time: 19:35 Vital Signs: Vital signs: Vital Signs Temperature 98.2 F 07/10/25 18:12 Pulse Rate 81 07/10/25 19:21 Respiratory Rate 18 07/10/25 18:12 Blood Pressure 145/88 07/10/25 19:21 Pulse Oximetry 96 07/10/25 19:21 Oxygen Delivery Me thod Room Air 07/10/25 19:21 MDM - Psych Medical Decision Making 29-year-old male with a history of bipolar and ODD/ADHD, presenting the emergency department with 96-hour hold in place for threatening statements alleged by father and attendance at the property as well as menacing behavior with paranoia, excessive marijuana use, noncompliance with his scheduled medications per allegation. Currently patient is paranoid but does not appear acutely psychotic, he is currently cooperative with medical evaluation, will obtain medical screening exam and if cleared arrange for psychiatric admission for further evaluation and treatment. Lab Data Labs with mild hyperglycemia 123 not clinically relevant, remainder of labs only significant for urine positive for marijuana 07/10/25 18:52 07/10/25 18:52 Laboratory Results WBC 8.43 10^3/uL (3.29-11.43) 07/10/25 18:52 RBC 5.50 10^6/uL (3.85-5.65) 07/10/25 18:52 Hgb 15.10 g/dL (11.27-16.99) 07/10/25 18:52 Hct 45.4 % (37-53) 07/10/25 18:52 MCV 82.5 fl (82-101) 07/10/25 18:52 MCH 27.5 pg (27-33) 07/10/25 18:52 MCHC 33.3 g/dL (30-55) 07/10/25 18:52 RDW 11.9 % (12.1-15.1) L 07/10/25 18:52 Plt Count 231 10^3/cmm (157-399) 07/10/25 18:52 MPV 10.6 fL (7.4-10.4) H 07/10/25 18:52 Neut % (Auto) 65.5 % 07/10/25 18:52 Lymph % (Auto) 24.6 % 07/10/25 18:52 Prentiss % (Auto) 7.7 % 07/10/25 18:52 Eos % (Auto) 1.3 % 07/10/25 18:52 Baso % (Auto) 0.7 % 07/10/25 18:52 Neut # (Auto) 5.52 10^3/uL (1.8-7.7) 07/10/25 18:52 Lymph # (Auto) 2.1 10^3/uL (0.8-4.8) 07/10/25 18:52 Prentiss # (Auto) 0.7 10^3/uL (0.2-0.9) 07/10/25 18:52 Eos # (Auto) 0.1 10^3/uL (0.0-0.8) 07/10/25 18:52 Baso # (Auto) 0.1 10^3/uL (0.0-0.1) 07/10/25 18:52 Nucleated RBC % (auto) 0 % 07/10/25 18:52 Nucleated RBCs # 0.0 /100WBC 07/10/25 18:52 Sodium 138 mmol/L (136-145) 07/10/25 18:52 Potassium 4.1 mmol/L (3.5-5.1) 07/10/25 18:52 Chloride 101 mmol/L (98-107) 07/10/25 18:52 Carbon Dioxide 25 mmol/L (22-29) 07/10/25 18:52 Anion Gap 16.1 (5-19) 07/10/25 18:52 BUN 14 mg/dL (6-20) 07/10/25 18:52 Creatinine 0.8 mg/dL (0.7-1.2) 07/10/25 18:52 GFR Calculation 112.8 mL/min (90-130) 07/10/25 18:52 Glucose 123 mg/dL (65-115) H 07/10/25 18:52 Calculated Osmolality 288 mOsm/kg (285-295) 07/10/25 18:52 Calcium 9.5 mg/dL (8.5-10.5) 07/10/25 18:52 Total Bilirubin 1.4 mg/dL (0.15-1.2) H 07/10/25 18:52 AST 16 U/L (0-40) 07/10/25 18:52 ALT 20 U/L (0-41) 07/10/25 18:52 Alkaline Phosphatase 67 U/L (40-130) 07/10/25 18:52 Total Protein 7.6 g/dL (6.6-8.7) 07/10/25 18:52 Albumin 4.8 g/dL (3.5-5.2) 07/10/25 18:52 Globulin 2.8 g/dL (1.3-4.6) 07/10/25 18:52 Urine Color Yellow (Yellow) 07/10/25 18:28 Urine Appearance Clear (CLEAR) 07/10/25 18:28 Urine pH 6.0 (5-7) 07/10/25 18: Ur Specific Millen 1.024 (1.005-1.030) 07/10/25 18:28 Urine Protein 1+ (Negative) A 07/10/25 18:28 Urine Glucose (UA) Negative (Normal) 07/10/25 18: Urine Ketones Negative (Negative) 07/10/25 18: Urine Blood Negative (Negative) 07/10/25 18:28 Urine Nitrate Negative (Negative) 07/10/25 18:28 Urine Bilirubin Negative (Negative) 07/10/25 18:28 Urine Urobilinogen 0.2 mg/dL (Negative) 07/10/25 18:28 Ur Leukocyte Esterase Negative (Negative) 07/10/25 18:28 Urine RBC 0-2 /hpf (0-2) 07/10/25 18:28 Urine WBC 0-5 /hpf (0-5) 07/10/25 18:28 Ur Squamous Epith Cells 0-5 /hpf (0-5) 07/10/25 18:28 Amorphous Sediment Not Reportable 07/10/25 18:28 Urine Bacteria None seen /hpf (NONE) 07/10/25 18:28 Hyaline Casts 3.30 /lpf 07/10/25 18:28 Salicylates < 0.3 mg/dL (3-10) L 07/10/25 18:52 Urine Opiates Screen Negative ng/mL (Negative) 07/10/25 18:28 Acetaminophen < 5.0 ug/mL (10-30) L 07/10/25 18:52 Ur Phencyclidine Scrn Negative ng/mL (Negative) 07/10/25 18:28 Urine Cocaine Screen Negative ng/mL (Negative) 07/10/25 18:28 U Marijuana (THC) Screen Positive ng/mL (Negative) H 07/10/25 18:28 Ethyl Alcohol < 10 mg/dL (0-10) 07/10/25 18:52 No radiology studies performed this visit EKG Data EKG 1: I personally reviewed and interpreted this EKG as follows: EKG interpretation date: 07/10/25 EKG interpretation time: 19:17 Interpretation: Sinus rhythm at 79 bpm with sinus arrhythmia no STEMI, no ectopy, QTc 396 ms Discharge Plan Discharge Patient Disposition: Admitted As Inpatient Clinical Impression: Bipolar disorder, Drug-induced psychotic disorder, Paranoia Condition: Stable Coding Level of Care Code ED Condenser Tube Tender for Nicki Conway
--- NOTE | 2025-07-10 18:43 | PC.NURSE ---
96 hr rights reviewed with pt @[id number] with assistance of [facility] regulatory compliance officer Danna All education reviewed with pt at this time. Pt verbalized understanding of hold parameters. Copy of rights left with pt. No further verbalized needs at this time.
--- NOTE | 2025-07-10 18:44 | PC.NURSE ---
CHATTERJEE/PT BELONGINGS: While inventorying patient belongings, a large amount of chatterjee was found in his possession when arriving to ER. This caption writer, and trust officer Juanito counted a total of $822 in chatterjee. Patient verified total amount of chatterjee was $822; (40- $20 bills, 2- $5 bills, and 12-$1 bills). Chatterjee then placed in sealed envelope, patient signed for verification of amount, and then caption writer and trust officer also signed.
[2025-07-10 18:57] LABS: Hematocrit 45.4 % (37-53); Hemoglobin 15.10 g/dL (11.27-16.99); Mean Corpuscular HGB Conc 33.3 g/dL (30-55); Mean Corpuscular Hemoglobin 27.5 pg (27-33); Mean Corpuscular Volume 82.5 fl (82-101); Nucleated Red Blood Cells % 0 %; Platelet Count 231 10^3/cmm (157-399); Red Blood Count 5.50 10^6/uL (3.85-5.65); White Blood Count 8.43 10^3/uL (3.29-11.43)
[2025-07-10 19:06] LABS: Glucose Urine UA Negative (Normal); Nitrate Urine Negative (Negative); Specific Gravity, Urine 1.024 (1.005-1.030)
--- NOTE | 2025-07-10 19:07 | ECG_ITS ---
[facility] Test Date: 2025-07-10 Pat Name: Chang Colvin Department: Room: Gender: Male Director Prospect: : 1995 Requested By: Lionel Booker Order Number: [id number] Tracey MD: Mariah Hopkins M.D. Measurements Intervals Pryor Rate: 79 P: 84 WV: 148 QRS: 91 QRSD: 96 T: 65 QT: 362 QTc: 415 Interpretive Statements SINUS RHYTHM WITH SINUS ARRHYTHMIA BORDERLINE RIGHT AXIS DEVIATION [QRS AXIS > 90] No previous ECG available for comparison Electronically Signed On 07-11-2025 18:47:39 COATING AND EMBOSSING UNIT OPERATOR by Mariah Hopkins M.D. [email or web address]
[2025-07-10 19:10] LABS: Add Urine Microscopic? YES
[2025-07-10 19:11] LABS: PCP Screen Urine Negative (Negative)
[2025-07-10 19:21] VITALS: BP 145/88; PULSE 81; O2SAT 96
[2025-07-10 19:27] LABS: Acetaminophen < 5.0 ug/mL (10-30); Alanine Aminotransferase 20 U/L (0-41); Albumin Level 4.8 g/dL (3.5-5.2); Alcohol Level < 10 mg/dL (0-10); Alkaline Phosphatase 67 U/L (40-130); Anion Gap 16.1 (5-19); Aspartate Amino Transferase 16 U/L (0-40); Blood Urea Nitrogen 14 mg/dL (6-20); Calcium 9.5 mg/dL (8.5-10.5); Carbon Dioxide 25 mmol/L (22-29); Chloride 101 mmol/L (98-107); Globulin 2.8 g/dL (1.3-4.6); Glucose 123 mg/dL (65-115); Osmolality Calculated 288 mOsm/kg (285-295); Potassium 4.1 mmol/L (3.5-5.1); Salicylate < 0.3 mg/dL (3-10); Sodium 138 mmol/L (136-145); Total Protein 7.6 g/dL (6.6-8.7)
[2025-07-10 21:10] VITALS: BP 155/77; PULSE 78; O2SAT 99
--- NOTE | 2025-07-10 21:14 | PC.NURSE ---
Security called by this RN to let them know Pt. is ready to go to NPU.
[2025-07-10 21:26] VITALS: BP 155/77; PULSE 82; O2SAT 98
[2025-07-10 21:39] VITALS: BP 170/94; PULSE 103; RESP 19; TEMP 36.8; O2SAT 98
[2025-07-10 22:00] VITALS: BP 143/87; PULSE 100; RESP 18; TEMP 36.8; O2SAT 98
[2025-07-11 06:00] VITALS: BP 132/89; PULSE 75; RESP 16; TEMP 36.6; O2SAT 96
--- NOTE | 2025-07-11 13:08 | P.NPUHP_ITS ---
Providers/Chief Complaint 2 Admitting Physician: Freddie Harvey MD Primary Care Provider: Michael Kamara Chief Complaint: 96 HPI NPU History of Present Illness Chang Colvin is a 29 year old male who presented to the emergency department with the following report: Chief Complaint: Psychiatric Symptoms Stated Complaint: 96 Time Seen by Provider: 07/10/25 18:20 History of Present Illness: 29-year-old male history of ODD, ADHD, bipolar 1 with previous psychiatric hospitalization in February of this year, presenting to the emergency department with 96-hour hold in place due to abnormal behavior and threatening comments made per affidavit which was signed by the patient's father as well as 2 tenants that reside on their property the patient has been acting out angrily, pacing the property at night and looking into windows, he has reportedly made comments to shoot people and eat them as well as to kill black people . He also apparently consumes an exorbitant amount of cannabis $600 per month, he was brought in by [employer]. Patient refutes most of the allegations made during my conversation with him, he is currently cooperative. He reports that there is a an open court case scheduled for the related to disputes with the same people. He was admitted to the neuropsychiatric unit for definitive treatment of those issues. He is known to [facility] psychiatry through inpatient and outpatient services but much of his outpatient services were between 2005 and 2012. An excerpt of his 2024 inpatient discharge summary is included below for context and the fact that there have been limited substantive changes. He presents today reporting that he is upset about being here and that he feels his family put him here secondary to vindictive intentions. He reports that they evicted him and the eviction will be over on 1210 but that he had plans to have people assist him in the moved tomorrow until now they have put a wrench in that as well. He denies any of the issues of the affidavit and reports that he has recordings and receipts for any of the things that have been alleged against him. He denies any need for any interventions and is upset about being here overall. Per his 02/11/2025 [facility] inpatient psychiatric discharge summary: Discharge Diagnosis 1. Mariann: 2. Bipolar I disorder: 3. Marijuana dependence: Reason for Visit Reason for Visit: 96 Brief History: History of Present Illness Chang Colvin is a 29 year old male with a past history of bipolar disorder, oppositional defiant disorder and ADHD who presented to the emergency department accompanied by police on a 96-hour court order. The patient was admitted to the neuropsychiatric unit for further evaluation and treatment. The affidavits reveal that the patient had been engaged in unusual behavior on the trailer on his parents property yesterday. He had apparently thrown garbage out of his trailer and onto the ground as he had reported that he was protesting his father continuously yelling at him. He reports that he had hit himself in the head yesterday in frustration as he believes his father for having been here in the hospital. He had been a poor historian and was unable to provide any clear history other than reporting that he has been upset at having to live back with his parents on their property. He states that his father is to blame for him being here in the hospital. He reports that his father is the one that is angry and states that his mother walks on eggshells and that he is the victim. 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 He reports that he has been losing weight because he cannot afford food. The patient had stated that he was trying to remove black mold in his trailer and had admitted to having put a hole in his wall but stated that the hole in the wall of his trailer was because he was trying to repair it but wanted to remove the black mold first. He was extremely difficult to redirect on the interview and effectively did not answer any questions regarding his sleep pattern other than stating that he felt fine and did not need to be on any medications but simply needed to go home. He had denied any drug or alcohol use. The patient was positive for marijuana on admission. Inpatient psychiatric history: The patient had reported that he had been hospitalized as a kid but could not recall when. Outpatient psychiatric history: The patient had reported having been treated through [facility] as an adolescent and a child with history of oppositional defiant disorder, ADHD, and bipolar disorder. Substance abuse history: Patient minimized use although there was a prior history of presence of alcohol on another emergency department visit as well as the patient being positive for marijuana on this admission. Medical history: Optic nerve atrophy, glaucoma, asthma Surgical history: Right inguinal hernia repair Medications: Lumigan, meloxicam, tizanidine Allergies: cat dander Legal history: none reported Family psychiatric history: unknown Social History: The patient was born in [place] and has a brother that lives in [place]. He reports that he had required special's educational services due to his visual impairment but graduated from high school. He reports he has been on disability throughout his life. He did not endorse any history of abuse. He is currently living on a trailer on his parents property. He had previously lived in [place] independently for 5 years but stated that his ability to manage his care with his finances led to him having to move back home with his parents approximately 1 year ago. He reports having a contentious relationship with his parents. He is not . Hospital Course The patient appeared quite manic initially upon arrival here in the hospital. He showed evidence of dramatic improvement with restarting of Zyprexa initially at 5 mg at night and titrated up to a dose of 7-1/2 mg at night prior to discharge. He had reported significant friction between his father and the patient but the patient had appeared agreeable to a long-term plan to live independently but in the short term returning back to his trailer on his father's property. During the hospitalization, the patient had routine laboratory studies which were within normal limits except for a few outliers. Additionally, there was a general medical evaluation which was also within normal limits and revealed no new acute processes. At the time of discharge, lethality was denied and psychosis was resolving. Mood and anxiety were well managed. The patient endorsed a plan to avoid all drugs of abuse and follow up with the aftercare recommendations of the treatment team. The patient was evaluated and deemed to be absent credible lethality and had achieved the maximum benefit from an inpatient hospitalization, and so was discharged. Meds NPU Home Medications ?Medication ?Instructions ?Recorded ?Confirmed ?Last Taken ?Type bimatoprost 0.01 % eye drops 1 drp ophthalmic (eye) BE DTIME 07/10/25 07/10/25 Unknown History (Lumigan) Allergies Allergy/AdvReac Type Severity Reaction Status Date / Time cat dander Allergy SHERMAN-Diallo Verified 07/09/25 15:20 Lip/Tongue/Throat PFSH NPU 2 PFSH: Medical History (Updated 07/10/25 @ 19:37 by Lionel Booker MD) Bipolar I disorder Follows with psychiatry ALICIA (generalized anxiety disorder) Follows with psychiatry Antipsychotic overdose On combination antipsychotic drug therapy Psychiatric care Asthma Glaucoma Marijuana dependence Surgical History History of right inguinal hernia repair Family History Father Hypertension Mother Arthritis Social History Smoking and tobacco/nicotine status: current every day tobacco/nicotine user (cannabis) Alcohol intake: current Alcohol intake frequency: 3 or more drinks per day Alcohol type: beer and hard liquor Substance/Drug Use: current Substance/Drug use frequency: daily Adopted: No Caregiver/support person: No Lives independently: Yes Household members: none Housing: Manufactured/Mobile home Marital status: Single Number of children: 0 Highest education level completed: High School Graduate Current occupational status: disabled Current occupational exposures/hazards: No Pets and animals: Yes Sexually active: Yes Do you think of yourself as: Straight/Heterosexual Current gender identity: Male Mental Status Exam 2 MSE Comments: This is a slender but well-developed white male in hospital scrubs with adequate grooming and intense eye contact. Full cordova noteworthy. No abnormal movements except for mild psychomotor agitation. Mostly cooperative with exam in moderate distress. Speech was normal rate and volume. Mood described as upset, affect congruent and irritable. Thought process linear. Thought content: Patient denied suicidal or homicidal ideation, there were no delusions reported but is unclear whether there are paranoid or persecutory delusions as she refutes the basis of that concern, he denied any auditory visual hallucinations. Attention and concentration appeared intact and memory appears mostly reliable but none were formally tested. He is alert and oriented times person and place. Insight and judgment appear limited and impulse control impaired. Vitals/I&O/Wt Last Vital Signs Temp 97.8 F 07/11/25 06:00 Pulse 75 07/11/25 06:00 Resp 16 07/11/25 06:00 BP 132/89 07/11/25 06:00 Pulse Ox 96 07/11/25 06:00 O2 Del Method Room Air 07/11/25 06:00 Weight last 48 hrs Weight 69.4 kg Data NPU 07/10/25 18:52 07/10/25 18:52 A&P Assessment and plan 1. Mariann: 2. Bipolar I disorder: 3. Marijuana dependence: Plan: 29-year-old male known through distant outpatient services and some recent services and recent inpatient services with history of mariann and significant issues once again presents with evidence of manic symptoms off of medication and once again on a hold for disruptive behavior and bizarre behavior reported at home. 1. Recommend restarting previous medication 2. Continue 15-minute checks for safety. 3. Encourage individual, group, and milieu therapies. 4. Gather collateral information. 5. Encouraged sober living treatment after discharge at the highest level care to which he is willing to commit. 6. Evaluate against the backdrop of the 96-hour hold. PDMP PDMP Reviewed: Not Reviewed Involuntary Hold Information 2 Hold Status: Legal Status: 96 Hour Hold Date/Time Hold Expires: 07/16/25 Attestations NPU 2 Medical Necessity Statement*: Inpatient hospitalization is medically necessary and the clinically appropriate intervention at this time.? We will monitor medications and make changes as indicated.? He will be in the hospital for over 2 midnights.? Likely length of stay 5-7 days.? Coding Level of Care Code Acute Code for [facility] Fwd Diagnoses Mariann F30.9 Bipolar I disorder F31.9 Marijuana dependence F12.20
[2025-07-11 14:00] VITALS: BP 145/92; PULSE 81; RESP 18; TEMP 36.7; O2SAT 99
[2025-07-11 20:41] VITALS: BP 137/90; PULSE 93; RESP 16; TEMP 36.6; O2SAT 95
[2025-07-12 06:00] VITALS: BP 128/68; PULSE 93; RESP 16; TEMP 36.7; O2SAT 98
--- NOTE | 2025-07-12 12:53 | P.NPUPN_ITS ---
Subjective NPU 2 Subjective: Patient presented today reporting that things are going fine here in the hospital but he is anxious about not being home and packing since he has to move. He reports that his family affected him and then put him in here making it impossible for him to actually get moved. He reports that the allegations in the affidavits are false that there is no truth to them and that he has some evidence to dispute that. We discussed trying to get some collateral information about when the affidavits were said to have occurred what timeframe. But he is reporting that this somehow was reflective of a conflict with his family. We discussed the fact that it is tough to determine what is paranoia and what represents an accurate depiction of a conflict as he has described it but that we would work to get through some sense of what was going on. He continues to deny desire for medication. Mental Status Exam 2 MSE Comments: This is a slender but well-developed white male in hospital scrubs with adequate grooming and intense eye contact. Full cordova noteworthy. No abnormal movements except for mild psychomotor agitation. Mostly cooperative with exam in moderate distress. Speech was normal rate and volume. Mood described as upset, affect congruent and irritable. Thought process linear. Thought content: Patient denied suicidal or homicidal ideation, there were no delusions reported but is unclear whether there are paranoid or persecutory delusions as she refutes the basis of that concern, he denied any auditory visual hallucinations. Attention and concentration appeared intact and memory appears mostly reliable but none were formally tested. He is alert and oriented times person and place. Insight and judgment appear limited and impulse control impaired. Vitals/I&O/Wt Last Vital Signs Temp 98.0 F 07/12/25 06:00 Pulse 93 07/12/25 06:00 Resp 16 07/12/25 06:00 BP 128/68 07/12/25 06:00 Pulse Ox 98 07/12/25 06:00 O2 Del Method Room Air 07/12/25 06:00 Weight last 48 hrs Weight 69.4 kg Data NPU 07/10/25 18:52 07/10/25 18:52 A&P Assessment and plan 1. Krystle: 2. Bipolar I disorder: 3. Marijuana dependence: Plan: 29-year-old male known through distant outpatient services and some recent services and recent inpatient services with history of krystle and significant issues once again presents with evidence of manic symptoms off of medication and once again on a hold for disruptive behavior and bizarre behavior reported at home. 1. Recommend restarting previous medication 2. Continue 15-minute checks for safety. 3. Encourage individual, group, and milieu therapies. 4. Gather collateral information. He is very adamant that this represents him being essentially eroded by his parents and denies any allegations made against him. 5. Encouraged sober living treatment after discharge at the highest level care to which he is willing to commit. 6. Evaluate against the backdrop of the 96-hour hold. PDMP PDMP Reviewed: Not Reviewed Involuntary Hold Information 2 Hold Status: Legal Status: 96 Hour Hold Date/Time Hold Expires: 07/16/2025 @ 1815 Attestations NPU 2 Medical Necessity Statement*: Inpatient hospitalization is medically necessary and the clinically appropriate intervention at this time.? We will monitor medications and make changes as indicated.? Likely length of stay 3-6 days.? Coding Level of Care Code Acute Code for [facility] Fwd Diagnoses Krystle F30.9 Bipolar I disorder F31.9 Marijuana dependence F12.20
[2025-07-12 14:00] VITALS: BP 170/80; PULSE 93; RESP 15; TEMP 36.6; O2SAT 99
[2025-07-12 21:05] VITALS: BP 128/70; PULSE 82; RESP 16; TEMP 36.7; O2SAT 95
[2025-07-12 21:06] VITALS: BP 144/83
[2025-07-13 06:00] VITALS: BP 123/75; PULSE 98; RESP 18; TEMP 36.3; O2SAT 98
[2025-07-13 12:54] VITALS: BP 124/79; PULSE 79; RESP 17; TEMP 36.6; O2SAT 99
--- NOTE | 2025-07-13 17:27 | P.NPUPN_ITS ---
Subjective NPU 2 Subjective: Patient presented today continuing to be calm per staff and continue to express concern about his parents use of the 96-hour hold process to causing him to be in a tough situation as far as moving. We reached out to the family and got their position on the situation. We discussed that we would utilize a social work team tomorrow to get a even clearer picture with going on. We discussed the fact that he has been on bottle patient and even though he has been frustrated about being here and resistant to the idea of medication he has been calm and without any concerns raised. Mental Status Exam 2 MSE Comments: This is a slender but well-developed white male in hospital scrubs with adequate grooming and intense eye contact. Full cordova noteworthy. No abnormal movements except for mild psychomotor agitation. Mostly cooperative with exam in moderate distress. Speech was normal rate and volume. Mood described as upset, affect congruent and irritable. Thought process linear. Thought content: Patient denied suicidal or homicidal ideation, there were no delusions reported but is unclear whether there are paranoid or persecutory delusions as she refutes the basis of that concern, he denied any auditory visual hallucinations. Attention and concentration appeared intact and memory appears mostly reliable but none were formally tested. He is alert and oriented times person and place. Insight and judgment appear limited and impulse control impaired. Vitals/I&O/Wt Last Vital Signs Temp 97.8 F 07/13/25 12:54 Pulse 79 07/13/25 12:54 Resp 17 07/13/25 12:54 BP 124/79 07/13/25 12:54 Pulse Ox 99 07/13/25 12:54 O2 Del Method Room Air 07/13/25 12:54 Weight last 48 hrs Weight 70.307 kg Data NPU 07/10/25 18:52 07/10/25 18:52 A&P Assessment and plan 1. Krystle: 2. Bipolar I disorder: 3. Marijuana dependence: Plan: 29-year-old male known through distant outpatient services and some recent services and recent inpatient services with history of krystle and significant issues once again presents with evidence of manic symptoms off of medication and once again on a hold for disruptive behavior and bizarre behavior reported at home. 1. Recommend restarting previous medication 2. Continue 15-minute checks for safety. 3. Encourage individual, group, and milieu therapies. 4. Gather collateral information. He is very adamant that this represents him being essentially railroaded by his parents and denies any allegations made against him. 5. Encouraged sober living treatment after discharge at the highest level care to which he is willing to commit. 6. Evaluate against the backdrop of the 96-hour hold. PDMP PDMP Reviewed: Not Reviewed Involuntary Hold Information 2 Hold Status: Legal Status: 96 Hour Hold Date/Time Hold Expires: 07/16/2025 @ 1815 Attestations NPU 2 Medical Necessity Statement*: Inpatient hospitalization is medically necessary and the clinically appropriate intervention at this time.? We will monitor medications and make changes as indicated.? Likely length of stay 2-4 days.? Coding Level of Care Code Acute Code for [facility] Fwd Diagnoses Krystle F30.9 Bipolar I disorder F31.9 Marijuana dependence F12.20
[2025-07-13 20:18] VITALS: BP 133/82; PULSE 73; RESP 16; TEMP 36.8; O2SAT 97
[2025-07-14 06:00] VITALS: BP 133/78; PULSE 77; RESP 18; TEMP 36.4; O2SAT 99
[2025-07-14 14:00] VITALS: BP 141/89; PULSE 70; RESP 17; TEMP 36.8; O2SAT 100
[2025-07-14 18:31] VITALS: BP 158/94; PULSE 107; RESP 16; TEMP 36.6; O2SAT 98
[2025-07-14 19:21] VITALS: BP 158/94; PULSE 107; RESP 16; TEMP 36.6; O2SAT 98
--- NOTE | 2025-07-14 20:08 | PC.NURSE ---
discharge patient dressed out in own clothes, escorted to waiting [employer] vehicle with destination of address on file.
--- NOTE | 2025-07-15 08:20 | DCPLANNER ---
IMM information was told to pt and copy placed in file.
== END 2025-07-14 19:55 | disposition home or self-care (01) | DRG 885 ==
LOC: ER 20:11 → NP 20:35
PROVIDERS: Admitting Provider Psychiatry & Neurology Psychiatry; Emergency Provider Student in an Organized Health Care Education/Training Program; PCP Clinical Nurse Specialist Adult Health; Visit Provider Psychiatry & Neurology Psychiatry
DX: F31.9 Bipolar disorder, unspecified (principal); F12.20 Cannabis dependence, uncomplicated; F41.1 Generalized anxiety disorder
CPT/HCPCS: 36415; 80053; 80306; 80307; 81001; 85025; 93005; 97150; 97165; 99285; J9999

== ENCOUNTER 2025-07-21 13:53 | Outpatient (CLI) | payer MEDICARE, MEDICAID, SELFPAY ==
--- NOTE | 2025-07-21 13:56 | XRR_ITS ---
PROCEDURE INFORMATION: Exam: XR Cervical Spine Exam date and time: 07/21/2025 2:04 PM Age: 29 years old Clinical indication: Cervicalgia; Chronic neck pain getting worse; Additional info: M54.2 - cervicalgia TECHNIQUE: Imaging protocol: Radiologic exam of the cervical spine. Views: 2 or 3 views. COMPARISON: CR XR chest 1V portable [id number] 04/30/2024 2:37 PM FINDINGS: Bones/joints: Normal alignment. Slight loss of intervertebral disc space height C5-C6. Remaining disc heights are preserved. Soft tissues: Unremarkable. XR/XR cervical spine 3V* [id number] IMPRESSION: Minimal C5-C6 degenerative disc disease.
== END 2025-07-21 13:54 | disposition home or self-care (01) ==
PROVIDERS: PCP Clinical Nurse Specialist Adult Health; Visit Provider Clinical Nurse Specialist Adult Health
DX: M50.322 Other cervical disc degeneration at C5-C6 level (principal)
CPT/HCPCS: 72040